=== PATIENT | female | born 1970 | race Caucasian/White ===

== ENCOUNTER 2017-11-04 10:52 | Emergency (ER) | payer OTHER ==
[~2017-11-04] VITALS: Ht 170.2 cm; Wt 76.6 kg
[2017-11-04 10:57] VITALS: BP 132/79; PULSE 87; RESP 16; TEMP 98.3; O2SAT 99
[2017-11-04 11:11] VITALS: BP 140/87; PULSE 115; RESP 16; TEMP 99.5; O2SAT 96
--- NOTE | 2017-11-04 11:29 | PD ---
HPI Chief Complaint: Cold / Flu Symptoms Time Seen by Provider: 11:17 Travel History International Travel<30 days: No Contact w/Intl Traveler<30days: No Traveled to known affect area: No History of Present Illness HPI This 47-year-old female says she been sick since Saturday. She's had fever. She' s had myalgias and cough. She's had a sore throat. Saturday she stepped on a nail with her right foot. The quite painful when she tries to walk. She has had some fever. PFSH Past Medical History Medical History: Denies Significant Hx Tetanus Vaccination: > 5 Years Influenza Vaccination: No ?: Not LMP: 10/21/17 Past Surgical History Surgical History: No Previous Surgery Social History Alcohol Use: Yes (RARELY) Tobacco Use: Yes (1PPD) Substance Use: No Allergies-Medications (Allergen,Severity, Reaction): Coded Allergies: No Known Allergies (Verified Allergy, Unknown, 11/04/17) Reported Meds & Prescriptions Reported Meds & Active Scripts Active No Active Prescriptions or Reported Medications Review of Systems General / Constitutional: Positive: Fever, Chills Eyes: No: Diploplia HENT: Positive: Sore Throat, Rhinitis Cardiovascular: No: Chest Pain or Discomfort, Palpitations Respiratory: Positive: Cough Gastrointestinal: Positive: Nausea, No: Vomiting, Diarrhea Musculoskeletal: Positive: Edema, Pain, No: Myalgias Skin: Positive Rash Neurologic: No: Weakness, Dizziness Psychiatric: No: Suicidal Ideations Endocrine: No: Heat Intolerance, Cold Intolerance Hematologic/Lymphatic: No: Easy Bruising Physical Exam Narrative GENERAL well-developed female SKIN: Focused skin assessment warm/dry. HEAD: Atraumatic. Normocephalic. EYES: Pupils equal and round. No scleral icterus. No injection or drainage. ENT: No nasal bleeding or discharge. Mucous membranes pink and moist. NECK: Trachea midline. No JVD. CARDIOVASCULAR: Regular rate and rhythm. No murmur appreciated. RESPIRATORY: No accessory muscle use. Clear to auscultation. Breath sounds equal bilaterally. GASTROINTESTINAL: Abdomen soft, non-tender, nondistended. Hepatic and splenic margins not palpable. MUSCULOSKELETAL: No obvious deformities. No clubbing. No cyanosis. No edema. There is a puncture wound on the forefoot of the right foot surface. There is some erythema on the dorsum of the foot NEUROLOGICAL: Awake and alert. No obvious cranial nerve deficits. Motor grossly within normal limits. Normal speech. PSYCHIATRIC: Appropriate mood and affect; insight and judgment normal. Data Data Last Documented VS Vital Signs Date Time Temp Pulse Resp B/P (MAP) Pulse Ox O2 Delivery O2 Flow Rate FiO2 11/04/17 10:57 98.3 87 16 132/79 (96) 99 Orders Orders Foot, Complete ([id number]) (11/04/17 11:25) Tetanus/Diphtheria Tox Adult (Tetanus/Di (11/04/17 11:30) MDM Medical Decision Making Medical Screen Exam Complete: Yes Emergency Medical Condition: Yes Medical Record Reviewed: Yes Differential Diagnosis Differential includes influenza, pneumonia, infected puncture wound Narrative Course X-ray of the foot is negative for fracture or foreign body. Patient will be started on Augmentin. Her tetanus has been updated Diagnosis Primary Impression: Infected puncture wound Additional Impression: Influenza Scripts Amoxicillin-Clavulanate (Augmentin) 500-125 mg Tab 500 MG PO Q8H for Infection for 7 Days, TAB 0 Refills Prov: Trenton Lora MD 11/04/17 Disposition: 01 DISCHARGE HOME Condition: Stable Trenton Lora MD Nov 04, 2017 11:29
[2017-11-04] MEDS ORDERED: TETANUS/DIPHTHERIA TOXOID ADULT 0.5 ML VIAL IM ONE (11:30)
--- NOTE | 2017-11-04 11:49 | RADRPT ---
EXAM DATE/TIME: 11/04/2017 11:30 [facility] COMPARISON: No previous studies available for comparison. INDICATIONS : Right foot pain on ball between 1st and 2nd digit, stepped on jas nail on Saturday. MEDICAL HISTORY : None. SURGICAL HISTORY : None. ENCOUNTER: Initial ACUITY: 3 days PAIN SCORE: 5/10 LOCATION: Right ball of foot between 1st and 2nd digit FINDINGS: Three view examination of the right foot demonstrates no soft tissue swelling, dislocation, or fractu re. The tarsal bones appear intact. The interphalangeal and metatarsophalangeal joints are intact. The calcaneus is intact. Bony mineralization is normal. CONCLUSION: Negative exam with no radiopaque foreign body or bony abnormality identified. Jeffrey Coley MD on November 04, 2017 at 11:45 Board Certified Radiologist. This report was verified electronically.
[2017-11-04] MEDS ORDERED: AUGM500T7 PO (12:13)
[2017-11-04 12:35] VITALS: BP 114/78
== END 2017-11-04 12:49 | disposition home or self-care (01) ==
LOC: PHED 10:52
DX: S91.331A Puncture wound without foreign body, right foot, initial encounter (principal); B96.89 Other specified bacterial agents as the cause of diseases classified elsewhere; J11.1 Influenza due to unidentified influenza virus with other respiratory manifestations; F17.210 Nicotine dependence, cigarettes, uncomplicated; W45.0XXA Nail entering through skin, initial encounter; Z23 Encounter for immunization
CPT/HCPCS: 73630; 90471; 90714